=== PATIENT | male | born 1960 | race Caucasian/White ===

== ENCOUNTER 2016-12-29 11:13 | Emergency (ER) | payer OTHER ==
[~2016-12-29] VITALS: Wt 90.0 kg
[~2016-12-29 11:13] MED LIST: ASPI-664 PO; ATOR10TA65 PO; DILT120C77 PO; LISI10TA2 PO; LORA1TAB PO; METO-448 PO; MTF1000T PO; NIT4 SL
[2016-12-29 11:25] VITALS: Wt 90.0 kg
--- NOTE | 2016-12-29 11:59 | ERA ---
ER Documentation Chief Complaint Date/Time DATE: 12/29/16 TIME: 11:58 Chief Complaint dizziness, n/v, l. arm numbness, chest tightness HPI The patient is a 56-year-old male, presenting to the ER because of acute dizziness intermittently for the last 3 days. He had similar symptoms previously, denies chest pain with exertion or vomiting or diaphoresis, dyspnea , abdominal pain, vomiting, dysuria, diarrhea. He does not smoke, drinks socially Past medical history: Anxiety, diabetes mellitus, hypertension, history of SVT, CAD, dyslipidemia Past surgical history: Right shoulder arthroscopy ROS All systems reviewed and are negative except as per history of present illness. Medications Home Meds Active Scripts Meclizine Hcl* (Antivert*) 12.5 Mg Tab, 25 MG PO Q6H Y for DIZZINESS, #20 TAB Prov:JOSSELYN TOVAR MD 12/29/16 Reported Medications Metformin* (Glucophage*) 1,000 Mg Tablet, 1000 MG PO BID, #60 TAB 12/29/16 Atorvastatin Calcium (Atorvastatin Calcium) 10 Mg Tablet, 10 MG PO QHS, #30 TAB 12/29/16 Diltiazem Hcl* (Cardizem CD*) 240 Mg Cap.sr.24h, 240 MG PO DAILY, #30 CAP 12/29/16 Aspirin* (Aspirin* Chew) 81 Mg Tab.chew, 81 MG PO DAILY, TAB.CHEW 12/29/16 Losartan Potassium* (Losartan Potassium*) 50 Mg Tablet, 50 MG PO DAILY, TAB 12/29/16 Glipizide* (Glipizide*) 10 Mg Tablet, 10 MG PO DAILY, TAB 12/29/16 Discontinued Reported Medications Levalbuterol* (Xopenex*) 0.31 Mg/3 Ml Nebu, 0.31 MG INHALATION Q6H Y for WHEEZING AND SOB, EA 12/29/16 Ferrous Sulfate* (Ferrous Sulfate*) 325 Mg Tabec, 325 MG PO DAILY, TAB 12/29/16 Zinc Sulfate* (Zinc Sulfate*) 220 Mg Tablet, 220 MG GTB DAILY, TAB 12/29/16 Ascorbic Acid* (Ascorbic Acid*) 500 Mg/5 Ml Syrup, 500 MG GTB BID, #300 ML 12/29/16 D3/E/Se/Soy Isofl/Tocoph/Lycop (PROSTATE 2.4 CAPSULE) 1 Each Capsule, 1 EACH GTB DAILY, CAP 8/23/17 Insulin Glargine* (Lantus*) 100 Unit/Ml Soln, 45 UNIT SC QHS, #1 VIAL 12/29/16 Escitalopram Oxalate* (Lexapro*) 10 Mg Tablet, 10 MG GTB DAILY, #30 TAB 12/29/16 Insulin Aspart* (Novolog Insulin Pen*) 100 Unit/Ml Soln, 0 SC .SLIDING SCALE ACHS, EA 12/29/16 Fluconazole* (Diflucan*) 100 Mg Tablet, 100 MG GTB DAILY for 7 Days, TAB 12/29/16 Lansoprazole* (Lansoprazole*) 30 Mg Capsule.dr, 30 MG GTB DAILY, CAP 12/29/16 Latanoprost (Xalatan) 2.5 Ml Drops, 1 DROP BOTH EYES QHS, #1 BOTTLE 12/29/16 Metoprolol Tartrate* (Lopressor*) 50 Mg Tab, 50 MG GTB BID, #60 TAB HOLD IF SBP<110 OR HR<60 12/29/16 Dextran 70/Hypromellose (ARTIFICIAL TEARS EYE DROPS) 15 Ml Drops, 1 DROP BOTH EYES QID, BOTTLE 12/29/16 Calcium Carbonate (Calcium Carbonate) 500 Mg Tab.chew, 500 MG GTB TID, TAB.CHEW 12/29/16 Aspirin* (Aspirin* Chew) 81 Mg Tab.chew, 81 MG GTB DAILY, TAB.CHEW 12/29/16 Metoclopramide* (Reglan*) 5 Mg Tablet, 5 MG GTB Q6H Y for NAUSEA AND OR VOMITING , TAB 12/29/16 Vlikcz-Drrsnwmk-Jitqdur* (Dennis CHASE* 12,000) 12,000 L-38,000-60,000 Unit Capsule.dr, 3 CAP GTB WITH MEALS, CAP 12/29/16 Enoxaparin Sodium* (Lovenox*) 30 Mg/0.3 Ml Disp.syrin, 30 MG SQ DAILY, SYR 12/29/16 Lorazepam* (Lorazepam*) 1 Mg Tablet, 1 MG PO BID Y for ANXIETY, #30 TAB 11/21/15 Aspirin* (Aspirin* EC) 81 Mg Tablet.dr, 81 MG PO DAILY, TAB 11/21/15 Nitroglycerin* (Nitrostat*) 0.4 Mg Tab.subl, 0.4 MG SL Q5MIN Y for CHEST PAIN, BOTTLE 02/17/15 Metformin* (Glucophage*) 1,000 Mg Tablet, 1000 MG PO BID 03/16/11 Lisinopril* (Lisinopril*) 10 Mg Tablet, 10 MG PO DAILY 03/16/11 Discontinued Scripts Metoprolol Tartrate* (Lopressor*) 25 Mg Tab, 25 MG PO BID for 30 Days, TAB 1 Refill Prov:ZEESHAN MCARTHUR MD 11/22/15 Diltiazem Hcl* (Cardizem CD*) 120 Mg Capsr, 120 MG PO DAILY, #30 1 Refill Prov:KAROLYN FERRERA MD 03/08/15 Atorvastatin Calcium (Atorvastatin Calcium) 10 Mg Tab, 10 MG PO HS, #14 TAB 1 Refill Prov:SRI CAST MD 02/18/15 Allergies Allergies: Coded Allergies: No Known Allergies (Verified Allergy, Unknown, 12/29/16) PMhx/Soc History of Surgery: Yes (Hernia repair 2004, right inguinal) Anesthesia Reaction: No Hx Neurological Disorder: Yes (cva) Hx Respiratory Disorders: No Hx Cardiac Disorders: Yes (Htn, Hypercholesterolemia) Hx Psychiatric Problems: No Hx Miscellaneous Medical Probl: Yes (Right shoulder pain - work related) Hx Alcohol Use: Yes Hx Substance Use: No Hx Tobacco Use: No Physical Exam Vitals Vital Signs Date Time Temp Pulse Resp B/P Pulse Ox O2 Delivery O2 Flow Rate FiO2 12/29/16 13:26 68 16 139/97 98 Room Air Physical Exam Const: No acute distress. Head: Atraumatic. Eyes: Normal Conjunctiva. ENT: Normal External Ears, Nose and Mouth. Neck: Full range of motion. No meningismus. Resp: Clear to auscultation bilaterally. Cardio: Regular rate and rhythm. Abd: Soft, non distended, normal bowel sounds, non tender. Skin: No petechiae or rashes. Back: No midline or flank tenderness. Ext: No cyanosis, or edema. Neur: Awake and alert. No focal deficit Psych: Normal Mood and Affect. Result Diagram: 12/29/16 1220 12/29/16 1220 Results 24 hrs Laboratory Tests Test 12/29/16 12:20 White Blood Count 5.210^3/ul Red Blood Count 4.5810^6/ul Hemoglobin 15.2g/dl Hematocrit 42.1% Mean Corpuscular Volume 91.9fl Mean Corpuscular Hemoglobin 33.2pg Mean Corpuscular Hemoglobin Concent 36.1g/dl Red Cell Distribution Width 12.0% Platelet Count 02834^3/UL Mean Platelet Volume 9.3fl Neutrophils % 55.9% Lymphocytes % 34.9% Monocytes % 6.1% Eosinophils % 1.9% Basophils % 0.6% Nucleated Red Blood Cells % 0.0/100WBC Neutrophils # (Manual) 310^3/ul Lymphocytes # 1.810^3/ul Monocytes # 0.310^3/ul Eosinophils # 0.110^3/ul Basophils # 0.010^3/ul Nucleated Red Blood Cells # 0.010^3/ul Prothrombin Time 13.0Sec Prothrombin Time Ratio 1.0 INR International Normalized Ratio 0.98 Activated Partial Thromboplast Time 27.5Sec Sodium Level 138mmol/L Potassium Level 4.3mmol/L Chloride Level 97mmol/L Carbon Dioxide Level 27mmol/L Anion Gap 18 Blood Urea Nitrogen 14mg/dl Creatinine 0.93mg/dl Glucose Level 120mg/dl Calcium Level 8.8mg/dl Troponin I < 0.012ng/ml Ethyl Alcohol Level < 10.0mg/dl Procedures/[place] [id number] Radiology Main Line: [phone] DIAGNOSTIC IMAGING REPORT Patient: MARY GAINES : 1960 Age: 56 Sex: M [id number] DOS: 12/29/16 1212 Ordering MD: JOSSELYN TOVAR MD Location: E/R Room/Bed: PROCEDURE: XR Chest. CLINICAL INDICATION: Chest pain TECHNIQUE: A single AP view of the chest was obtained. COMPARISON: Chest x-ray dated 03/14/2016 FINDINGS: Lung volumes are low with compressive changes and crowding of the central pulmonary vascular markings with bibasilar atelectasis . No focal airspace opacity, pleural effusion or pneumothorax is seen. The cardiomediastinal silhouette is mildly enlarged. The osseous structures are unremarkable. IMPRESSION: 1. Low lung volumes with compressive changes and bibasilar atelectasis. 2. Mild cardiomegaly. RPTAT: HH .Marylin Johnson MD, Date Time Electronically viewed and signed by .Marylin Johnson MD, MD on 12/29/2016 13 :15 .G/ CC: JOSSELYN TOVAR MD [place] [id number] Radiology Main Line: [phone] DIAGNOSTIC IMAGING REPORT Patient: MARY GAINES : 1960 Age: 56 Sex: M MR #: [id number] DOS: 12/29/16 1212 Ordering MD: JOSSELYN TOVAR MD Location: E/R Room/Bed: PROCEDURE: CT Brain without. CLINICAL INDICATION: Dizziness TECHNIQUE: A CT of the brain was performed on a multi-slice CT scanner utilizing axial sections from the skull base through the vertex without contrast. Coronal and sagittal reconstructed images were provided. One or more of the following does reduction techniques were used: Automated exposure control; adjustment of the mA and/or kV according to patient size; use of the aorta of reconstruction technique. Images were reviewed on a high-resolution PACS workstation. The exam CTDI = 42.56 mGy. The exam DLP = 720.23 mGy-cm. COMPARISON: CT brain 03/07/2015 FINDINGS: The ventricles and sulci are symmetric and normal in size and morphology. There is no evidence of intracranial hemorrhage, mass effect, edema or midline shift. No abnormal intra-axial or extra-axial fluid collections are seen. The garnica/white matter differentiation is well preserved. The osseous structures and visualized sinuses are unremarkable. The mastoid air cells are clear. The surrounding soft tissue scalp and bony calvarium are intact and normal. Atherosclerotic calcifications of the intracranial carotid arteries are present. IMPRESSION: 1. No CT evidence of acute intracranial pathology. 2. Atherosclerotic calcifications of the intracranial carotid arteries. RPTAT: KK .Helio Huerta MD, Date Time Electronically viewed and signed by .Helio Huerta MD, on 2016 15:01 .B/ CC: JOSSELYN TOVAR MD EKG: At 11:30 AM read by emergency physician Rate/Rhythm: Normal Sinus Rhythm 66 beats/min QRS, ST, T-waves: No ST elevation, nonspecific ST and T abnormality Impression: Abnormal EKG EKG: At 12:35 PM read by emergency physician Rate/Rhythm: Normal Sinus Rhythm 82 beats/min QRS, ST, T-waves: No ST elevation, nonspecific ST and T abnormality, prolonged QT Impression: Abnormal EKG MEDICAL MAKING DECISION: The patient is a 56-year-old male, presenting to the ER because of acute dizziness of unclear etiology. He remains well emergency department and is stable for outpatient follow-up The differential diagnoses considered include but are not limited to central causes such as cerebellar infarct, cerebellar hemorrhage, cerebellar tumor, acoustic neuroma, peripheral causes such as benign positional vertigo, labyrinthitis, medication, Meniere's disease. Departure Diagnosis: Primary Impression: Dizziness Condition: Good Comments He was discharged with Antivert I discussed the findings with the patient. I advised the patient to follow-up with the primary physician in about 1-2 days, sooner if needed and return if any concern. JOSSELYN TOVAR MD Dec 29, 2016 11:57
[2016-12-29 12:36] LABS: BASOPHILS % 0.6 % (0.0-2.0); EOSINOPHILS # 0.1 10^3/ul (0.0-0.5); EOSINOPHILS % 1.9 % (0.0-7.0); HEMATOCRIT 42.1 % (42.0-52.0); HEMOGLOBIN 15.2 g/dl (14.0-18.0); LYMPHOCYTES # 1.8 10^3/ul (0.8-2.9); LYMPHOCYTES % 34.9 % (15.0-51.0); MEAN CORPUSCULAR HEMOGLOBIN 33.2 pg (29.0-33.0); MEAN CORPUSCULAR HGB CONC 36.1 g/dl (32.0-37.0); MEAN CORPUSCULAR VOLUME 91.9 fl (82.0-101.0); MEAN PLATELET VOLUME 9.3 fl (7.4-10.4); MONOCYTE # 0.3 10^3/ul (0.3-0.9); MONOCYTES % 6.1 % (0.0-11.0); NEUTROPHILS % 55.9 % (39.0-77.0); PLATELET COUNT 160 10^3/UL (140-415); RED BLOOD COUNT 4.58 10^6/ul (4.70-6.10); WHITE BLOOD COUNT 5.2 10^3/ul (4.8-10.8)
[2016-12-29 12:51] LABS: INR 0.98
[2016-12-29 12:52] LABS: PARTIAL THROMBOPLASTIN TIME 27.5 Sec (25.0-35.0)
[2016-12-29 12:55] LABS: ANION GAP 18 (8-16); BLOOD UREA NITROGEN 14 mg/dl (7-20); CALCIUM 8.8 mg/dl (8.4-10.2); CARBON DIOXIDE 27 mmol/L (21-31); CHLORIDE 97 mmol/L (97-110); CREATININE 0.93 mg/dl (0.61-1.24); GLUCOSE 120 mg/dl (70-220); POTASSIUM 4.3 mmol/L (3.5-5.1); SODIUM 138 mmol/L (135-144)
[2016-12-29 13:07] LABS: TROPONIN-I < 0.012 ng/ml (0.00-0.12)
--- NOTE | 2016-12-29 13:15 | RADRPT ---
PROCEDURE: XR Chest. CLINICAL INDICATION: Chest pain TECHNIQUE: A single AP view of the chest was obtained. COMPARISON: Chest x-ray dated 03/14/2016 FINDINGS: Lung volumes are low with compressive changes and crowding of the central pulmonary vascular marking s with bibasilar atelectasis . No focal airspace opacity, pleural effusion or pneumothorax is seen. The cardiomediastinal silhouette is mildly enlarged. The osseous structures are unremarkable. IMPRESSION: 1. Low lung volumes with compressive changes and bibasilar atelectasis. 2. Mild cardiomegaly. RPTAT: HH .Marylin Johnson MD, MD Date Time Electronically viewed and signed by .Marylin Johnson MD, on 12/29/2016 13:15 .G/
[2016-12-29 13:26] VITALS: BP 139/97; PULSE 68; RESP 16
[2016-12-29] MEDS ORDERED: ENOX30DI10 SQ (13:52)
[2016-12-29] MEDS ORDERED: LIPA1CAP4 GTB (13:54)
[2016-12-29] MEDS ORDERED: ASPI81TA3 GTB (13:55)
[2016-12-29] MEDS ORDERED: METO5TAB58 GTB (13:55)
[2016-12-29] MEDS ORDERED: CALC-459 GTB (13:56)
[2016-12-29] MEDS ORDERED: DEXT15DR5 BOTH EYES (13:57)
[2016-12-29] MEDS ORDERED: METO-429 GTB (13:58)
[2016-12-29] MEDS ORDERED: LATA2.5D9 BOTH EYES (13:59)
[2016-12-29] MEDS ORDERED: LANS30CA GTB (13:59)
[2016-12-29] MEDS ORDERED: NOVO3I SC (14:00)
[2016-12-29] MEDS ORDERED: ESCI10TA GTB (14:00)
[2016-12-29] MEDS ORDERED: FLUC100T GTB (14:00)
[2016-12-29] MEDS ORDERED: LANT3I SC (14:01)
[2016-12-29] MEDS ORDERED: D3/E1CAP GTB (14:02)
[2016-12-29] MEDS ORDERED: ASCO500S2 GTB (14:03)
[2016-12-29] MEDS ORDERED: ZINC220T GTB (14:04)
[2016-12-29] MEDS ORDERED: FER325 PO (14:05)
[2016-12-29] MEDS ORDERED: LEVA0.3112 INHALATION (14:08)
--- NOTE | 2016-12-29 15:02 | RADRPT ---
PROCEDURE: CT Brain without. CLINICAL INDICATION: Dizziness TECHNIQUE: A CT of the brain was performed on a multi-slice CT scanner utilizing axial sections fr om the skull base through the vertex without contrast. Coronal and sagittal reconstructed images w ere provided. One or more of the following does reduction techniques were used: Automated exposure control; adjustment of the mA and/or kV according to patient size; use of the aorta of reconstructi on technique. Images were reviewed on a high-resolution PACS workstation. The exam CTDI = 42.56 mGy . The exam DLP = 720.23 mGy-cm. COMPARISON: CT brain 03/07/2015 FINDINGS: The ventricles and sulci are symmetric and normal in size and morphology. There is no evidence of i ntracranial hemorrhage, mass effect, edema or midline shift. No abnormal intra-axial or extra-axial fluid collections are seen. The garnica/white matter differentiation is well preserved. The osseous structures and visualized sinuses are unremarkable. The mastoid air cells are clear. Th e surrounding soft tissue scalp and bony calvarium are intact and normal. Atherosclerotic calcificat ions of the intracranial carotid arteries are present. IMPRESSION: 1. No CT evidence of acute intracranial pathology. 2. Atherosclerotic calcifications of the intracranial carotid arteries. RPTAT: KK .Helio Huerta MD, MD Date Time Electronically viewed and signed by .Helio Huerta MD, MD on 12/29/2016 15:01 .B/
[2016-12-29] MEDS ORDERED: DILT240C79 PO (15:07)
[2016-12-29] MEDS ORDERED: GLIP-95 PO (15:07)
[2016-12-29] MEDS ORDERED: LOSA50TA6 PO (15:07)
[2016-12-29] MEDS ORDERED: ATOR10TA65 PO (15:07)
[2016-12-29] MEDS ORDERED: ASPI81TA3 PO (15:07)
[2016-12-29] MEDS ORDERED: MTF1000T PO (15:08)
[2016-12-29] MEDS ORDERED: MECL12.574 PO (16:00)
== END 2016-12-29 16:56 | disposition home or self-care (01) ==
LOC: E/R 11:13
DX: R42 Dizziness and giddiness (principal); E11.9 Type 2 diabetes mellitus without complications; I10 Essential (primary) hypertension; I25.10 Atherosclerotic heart disease of native coronary artery without angina pectoris; R07.9 Chest pain, unspecified; Z79.84 Long term (current) use of oral hypoglycemic drugs; Z79.82 Long term (current) use of aspirin; Z79.4 Long term (current) use of insulin
CPT/HCPCS: 70450; 71010; 80048; 80306; 84484; 85025; 85610; 85730; 93005